=== PATIENT | female | born 1990 | race Caucasian/White ===

== ENCOUNTER 2017-07-15 19:11 | Emergency (ER) | payer MEDICAID, SELFPAY ==
[2017-07-15 19:27] VITALS: BP 126/79; PULSE 94; RESP 18; TEMP 37; O2SAT 98; BMI 33.2
--- NOTE | 2017-07-15 20:17 | HMH.EDGENADL ---
ED Disposition Clinical Impression: Ulnar tunnel syndrome of right wrist Disposition: Home, Self-Care Condition on Discharge: Good Instructions: Cubital Tunnel Syndrome Additional Instructions: wear splint and use meds and see pcp or ortho for follow up Prescriptions: predniSONE [Prednisone 20mg Tab] 20 mg PO BID #14 tab Referrals: Candice Landry [Primary Care Provider] - - Critical Care Critical Care Time: No Attestation: On 07/15/17, the high probability of a clinically significant, sudden or life threatening deterioration of the following system(s) required my full and direct attention, intervention and personal management. The time I documented below is in addition to time spent performing reported procedures but includes the following listed in this critical care notation. Medical Decision Making - Medical Records Medical records reviewed: Yes: I reviewed the patient's medical records. Vital Signs: 07/15/17 19:27 Temperature 98.6 F Temperature Source Oral Pulse Rate [Right Brachial] 94 H Respiratory Rate 18 Blood Pressure [Right Arm] 126/79 Blood Pressure Mean [Right Arm] 94 Blood Pressure Source [Right Arm] Automatic Cuff Blood Pressure Position [Right Arm] Sitting 02 Sat by Pulse Oximetry 98 Oxygen Delivery Method Room Air - Farooq Inquiry Pt receiving controlled substance: No General Adult HPI - General Chief complaint: PAIN Stated complaint: Right hand swelling, pain in right elbow Time Seen by Provider: 07/15/17 20:17 Mode of Arrival: Ambulatory Source of Information: Patient, Relative Limitations: No Limitations Description of Symptoms (Recalled from ER Triage Doc. 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 Onset (ago): week(s) Location: right, upper extremity Severity: moderate - Related Data Previous Rx's Medication Instructions Recorded predniSONE [Prednisone 20mg 20 mg PO BID #14 tab 07/15/17 Tab] Allergies Allergy/AdvReac Type Severity Reaction Status Date / Time No Known Allergies Allergy Unverified 07/01/17 15:20 [facility] History I have reviewed the patient's past medical history: Yes Medical History: Denies:: Cancer, Diabetes Mellitus Type 1, Diabetes Mellitus Type 2, MRSA Laterality Cases: Bilateral: Myringotomy (Ear Tubes), Tonsillectomy Amputation: No Fractures: Yes (left wrist, right thumb) - *Social History Educational Level: Completed GED/General Educational Development Smoking Status: Never smoker Alcohol Intake: never - Psychiatric History Expresses thoughts of harming self/others: None Suicide Plan Description: No Plan ROS Obtained: Yes All systems reviewed & no additional complaints except as noted - Constitutional Denies fever(s) - Musculoskeletal Reports radiating pain into limb, Denies joint pain, Denies joint swelling Physical Exam - General General appearance: alert, in no apparent distress - Head Head exam: atraumatic - Eye Eye exam: Present: normal appearance - ENT ENT exam: Present: mucous membranes moist - Neck Neck exam: Present: normal inspection - Respiratory Respiratory exam: Absent: respiratory distress - Cardiovascular Cardiovascular exam: Present: regular rate - Extremities Exam Extremities exam: Present: normal inspection, full ROM, normal capillary refill, other (neg phalens and tinnels and neurovascular ok) - Neurological Exam Neurological exam: Present: alert, oriented X3, CN II-XII intact - Psychiatric Psychiatric exam: Present: normal affect - Skin Skin exam: Present: warm, dry
--- NOTE | 2017-07-15 20:20 | ED_ITS ---
ED Disposition Clinical Impression: Ulnar tunnel syndrome of right wrist Disposition: Home, Self-Care Condition on Discharge: Good Instructions: Cubital Tunnel Syndrome Additional Instructions: wear splint and use meds and see pcp or ortho for follow up Prescriptions: predniSONE [Prednisone 20mg Tab] 20 mg PO BID #14 tab Referrals: Candice Landry [Primary Care Provider] - - Critical Care Critical Care Time: No Attestation: On 07/15/17, the high probability of a clinically significant, sudden or life threatening deterioration of the following system(s) required my full and direct attention, intervention and personal management. The time I documented below is in addition to time spent performing reported procedures but includes the following listed in this critical care notation. Medical Decision Making - Medical Records Medical records reviewed: Yes: I reviewed the patient's medical records. Vital Signs: 07/15/17 19:27 Temperature 98.6 F Temperature Source Oral Pulse Rate [Right Brachial] 94 H Respiratory Rate 18 Blood Pressure [Right Arm] 126/79 Blood Pressure Mean [Right Arm] 94 Blood Pressure Source [Right Arm] Automatic Cuff Blood Pressure Position [Right Arm] Sitting 02 Sat by Pulse Oximetry 98 Oxygen Delivery Method Room Air - Farooq Inquiry Pt receiving controlled substance: No General Adult HPI - General Chief complaint: PAIN Stated complaint: Right hand swelling, pain in right elbow Time Seen by Provider: 07/15/17 20:17 Mode of Arrival: Ambulatory Source of Information: Patient, Relative Limitations: No Limitations Description of Symptoms (Recalled from ER Triage Doc. 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 Onset (ago): week(s) Location: right, upper extremity Severity: moderate - Related Data Previous Rx's Medication Instructions Recorded predniSONE [Prednisone 20mg 20 mg PO BID #14 tab 07/15/17 Tab] Allergies Allergy/AdvReac Type Severity Reaction Status Date / Time No Known Allergies Allergy Unverified 07/01/17 15:20 [facility] History I have reviewed the patient's past medical history: Yes Medical History: Denies:: Cancer, Diabetes Mellitus Type 1, Diabetes Mellitus Type 2, MRSA Laterality Cases: Bilateral: Myringotomy (Ear Tubes), Tonsillectomy Amputation: No Fractures: Yes (left wrist, right thumb) - *Social History Educational Level: Completed GED/General Educational Development Smoking Status: Never smoker Alcohol Intake: never - Psychiatric History Expresses thoughts of harming self/others: None Suicide Plan Description: No Plan ROS Obtained: Yes All systems reviewed & no additional complaints except as noted - Constitutional Denies fever(s) - Musculoskeletal Reports radiating pain into limb, Denies joint pain, Denies joint swelling Physical Exam - General General appearance: alert, in no apparent distress - Head Head exam: atraumatic - Eye Eye exam: Present: normal appearance - ENT ENT exam: Present: mucous membranes moist - Neck Neck exam: Present: normal inspection - Respiratory Respiratory exam: Absent: respiratory distress
[2017-07-15 20:43] VITALS: BP 108/64; PULSE 63; RESP 18; TEMP 36.6
--- NOTE | 2017-07-15 20:46 | PC.NURSE ---
SPLINT APPLIED TO RIGHT WRIST ORDERED PER DR COFFMAN
== END 2017-07-15 20:47 | disposition home or self-care (01) ==
LOC: UTC 19:20 → ER 19:23
PROVIDERS: Emergency Provider Emergency Medicine; Family Provider Family Medicine; PCP Physician Assistant
DX: G56.21 Lesion of ulnar nerve, right upper limb (principal)
CPT/HCPCS: 29125; 99282; 99283

== ENCOUNTER 2018-10-19 13:00 | Outpatient (RCR) | payer MEDICAID, SELFPAY | END 2018-11-09 14:43 | disposition home or self-care (01) | LOC: OT 13:00 | PROVIDERS: Visit Provider Physician Assistant | DX: M25.521 Pain in right elbow (principal); M25.531 Pain in right wrist | CPT/HCPCS: 97110; 97164; 97165; 97763 ==

== ENCOUNTER 2021-03-11 09:07 | Emergency (ER) | payer MEDICAID, SELFPAY ==
[2021-03-11 09:27] VITALS: BP 136/76; PULSE 104; RESP 16; TEMP 36.9; O2SAT 100; BMI 33.2
--- NOTE | 2021-03-11 09:31 | HMH.EDUTC ---
[facility] – [place] Disposition Clinical Impression: URI (upper respiratory infection) Qualifiers: URI type: unspecified viral URI Qualified Code(s): J06.9 - Acute upper respiratory infection, unspecified Disposition: Home, Self-Care Condition on Discharge: Good Instructions: DI for Viral Upper Respiratory Infection -- Adult Additional Instructions: Rest, fluids, Tylenol/Motrin as needed. You have been tested for COVID19. Please isolate yourself as if you are positive until test results received. Prescriptions: Albuterol Sulfate [Albuterol Sulfate Hfa] 2 puffs IH Q6HP PRN 30 Days #1 each PRN Reason: Shortness Of Breath Transmission Status: [facility] predniSONE [Prednisone 20mg Tab] 20 mg PO BID 5 Days #10 tab Transmission Status: Pending to [facility] Referrals: Alma Jones APRN [Primary Care Provider] - Forms: Work/School Release Time of Disposition: 09:50 Medical Decision Making - Farooq Inquiry Pt receiving controlled substance: No Vital Signs: 03/11/21 09:27 Temperature 98.5 F Temperature Source Oral Pulse Rate [Left] 104 H Respiratory Rate 16 Blood Pressure [Right Arm] 136/76 Blood Pressure Mean [Right Arm] 96 02 Sat by Pulse Oximetry 100 Orders (Tests/Meds): ORDERS Category Date Time Status Covid-19 Nasal PCR ([facility]) Routine Lab 03/11/21 09:33 Ordered [facility] [place] HPI - General Stated complaint: sore throat, weakness, cough, sob, headache Time Seen by Provider: 03/11/21 09:31 - History of Present Illness Provider Complaint: Sore throat, cough, headache, runny nose, non productive cough, body aches, nausea, diarrhea. No fever. No loss of taste or smell. No known exposure to COVID19 but works at [employer]. Has felt poorly X 2 days. Onset (ago): day(s) (2) Location: head, chest Consistency: constant Relieving factors: none Exacerbating factors: none Associated symptoms: cough, fever/chills, headaches, malaise, nausea/vomiting, shortness of breath Treatments prior to arrival: NSAID - Related Data Home Medications Medication Instructions Recorded Confirmed Dextroamphetamine/Amphetamine 30 mg PO BID 06/14/19 06/14/19 [Adderall 30 mg Tablet] Previous Rx's Medication Instructions Recorded Amoxicillin [Amoxicillin 500mg Tab] 500 mg PO TID 10 Days #30 tab 06/14/19 Brompheniramine/Pseudoephed/Dm 5 ml PO Q6HP PRN #240 syrup 06/14/19 [Bromfed Dm Cough Syrup] predniSONE [Deltasone 10mg tablet] 10 mg PO BID 3 Days #6 tab 06/14/19 Albuterol Sulfate [Albuterol 2 puffs IH Q6HP PRN 30 Days #1 each 03/11/21 Sulfate Hfa] predniSONE [Prednisone 20mg 20 mg PO BID 5 Days #10 tab 03/11/21 Tab] Allergies Allergy/AdvReac Type Severity Reaction Status Date / Time No Known Allergies Allergy Verified 12/05/17 17:47 [facility] History - Hepatitis A Screen Attestation statement:: This patient has been screened for Hepatitis A risk factors. I have reviewed the patient's past medical history: Yes Medical History: Denies:: Cancer, Diabetes Mellitus Type 1, Diabetes Mellitus Type 2, MRSA Laterality Cases: Bilateral: Myringotomy (Ear Tubes), Tonsillectomy Amputation: No Fractures: Yes (left wrist, right thumb) - Social History Smoking Status: Never smoker Alcohol Intake: never Occupational Status: other ROS Obtained: Yes All systems reviewed & no additional complaints - Constitutional Constitutional: Reports body ache, Reports chills, Reports fatigue, Denies fever(s), Reports malaise - ENT Ears, Nose, Mouth, and Throat: Reports headache(s), Reports nasal congestion - Respiratory Respiratory: Reports cough - Gastrointestinal Gastrointestingal: Reports: nausea Physical Exam - General General appearance: alert, in no apparent distress - Eye Eye exam: Present: PERRL - ENT ENT exam: Present: TM's normal bilaterally - Expanded ENT Exam Throat exam: Present: other (PND) - Respiratory Respiratory exam: Present: normal lung onofre
[2021-03-11 10:08] VITALS: BP 136/76; PULSE 104; RESP 18; TEMP 36.9
== END 2021-03-11 10:18 | disposition home or self-care (01) ==
PROVIDERS: Emergency Provider Physician Assistant; PCP Nurse Practitioner Family
DX: J06.9 Acute upper respiratory infection, unspecified (principal); Z20.822 Contact with and (suspected) exposure to COVID-19
CPT/HCPCS: 99202; G0463; U0003

== ENCOUNTER 2021-04-20 09:26 | Emergency (ER) | payer MEDICAID, SELFPAY ==
[2021-04-20 09:30] VITALS: BP 127/85; PULSE 94; RESP 20; TEMP 36.9; O2SAT 100; BMI 33.5
--- NOTE | 2021-04-20 10:02 | HMH.EDUTC ---
[facility] – [place] Disposition Clinical Impression: Dysuria Disposition: Home, Self-Care Condition on Discharge: Good Instructions: Interstitial Cystitis, Urine Culture, DI for Urinary Tract Infection (UTI), DI for Interstitial Cystitis Additional Instructions: Drink plenty of fluids. Take tylenol or ibuprofen for pain or fever. Take the medications as directed. Follow up with your regular doctor. GO TO THE ER FOR ANY WORSENING SYMPTOMS Quarantine until you know the results of your covid-19 test. If it is positive, the health department should call you and give you further instructions about your length of Quarantine and other things. Notify your school or workplace of your results and follow their instructions regarding return to work/school. The pyridium will make your urine turn orange, this is an expected side effect. It will stain your clothes if it comes into contact with them. I put in a referral to a urologist because you only have 1 kidney and your symptoms sound more like interstitial cystitis than they do an actual infection. I recommend you call Dr. Ashby's office and get a follow up appointment there for him to go back over everything and to see if there are other ways to help you when your symptoms return after this episode. Prescriptions: Sulfamethoxazole/Trimethoprim [Bactrim DS tablet] 1 each PO BID 5 Days #10 tab Transmission Status: Received by [facility] Fluconazole [Diflucan 150mg tab] 150 mg PO ONCE #1 tab Transmission Status: Received by [facility] Phenazopyridine HCl [Pyridium 200mg Tablet] 200 pow PO TID #6 tab Transmission Status: Received by [facility] Referrals: Charley El [Primary Care Provider] - Bart Ashby MD [Staff Physician] - Forms: Work/School Release Time of Disposition: 10:20 Medical Decision Making - Medical Records Medical records reviewed: No: I reviewed the patient's medical records. - Farooq Inquiry Pt receiving controlled substance: No Vital Signs: 04/20/21 09:30 04/20/21 10:22 Temperature 98.4 F 98.4 F Temperature Source Oral Pulse Rate 94 H Pulse Rate [Right Brachial] 94 H Respiratory Rate 20 20 Blood Pressure 127/85 Blood Pressure [Right Arm] 127/85 Blood Pressure Mean [Right Arm] 99 Blood Pressure Source [Right Arm] Automatic Cuff Blood Pressure Position [Right Arm] Sitting 02 Sat by Pulse Oximetry 100 Oxygen Delivery Method Room Air - Lab Data Lab results reviewed: Yes: I reviewed the patient's lab results. Lab Results 04/20/21 10:05: Urine Color Dark yellow, Urine Appearance Clear, Urine pH 6.0, Ur Specific [place] 1.025, Urine Protein Negative, Urine Glucose (UA) Negative, Urine Ketones Negative, Urine Blood Negative, Urine Nitrate Negative, Urine Bilirubin Negative, Urine Urobilinogen 0.2, Ur Leukocyte Esterase Negative Orders (Tests/Meds): ORDERS Category Date Time Status Covid-19 Nasal PCR ([facility]) Routine Lab 04/20/21 09:56 Received Urine Culture Stat Micro 04/20/21 09:47 Received [facility] UTC HPI - General Stated complaint: possible uti, cough, weakness, runny nose headache Time Seen by Provider: 04/20/21 10:02 - History of Present Illness Provider Complaint: She c/o 2 days of dysuria and pressure in her bladder . She thinks that she has uti. She states that she gets symptoms like this every few months and she gets treated like she has a UTI with antibiotics and it gets better. She denies any fever or chills. - Related Data Home Medications Medication Instructions Recorded Confirmed Dextroamphetamine/Amphetamine 30 mg PO BID 06/14/19 06/14/19 [Adderall 30 mg Tablet] Previous Rx's Medication Instructions Recorded Amoxicillin [Amoxicillin 500mg Tab] 500 mg PO TID 10 Days #30 tab 06/14/19 Brompheniramine/Pseudoephed/Dm 5 ml PO Q6HP PRN #240 syrup 06/14/19 [Bromfed Dm Cough Syrup] predniSONE [Deltasone 10mg tablet] 10 mg PO BID 3 Days #6 tab 06/14/19 [facility]
[2021-04-20 10:22] VITALS: BP 127/85; PULSE 94; RESP 20; TEMP 36.9; O2SAT 100
[2021-04-20 11:41] LABS: Apearance,Urine Clear (Clear); Color,Urine Dark Yellow (Yellow); Specific Gravity, Urine 1.025 (1.005-1.030)
[2021-04-20 11:42] LABS: Bilirubin,Urine Negative (Negative); Blood, Urine Negative (Negative); Glucose,Urine (UA) Negative (Negative); Ketones,Urine Negative (Negative); Protein,Urine Negative (Negative); UTC Leukocyte Esterase,Urine Negative (Negative); UTC Nitrate,Urine Negative (Negative); Urobilinogen,Urine 0.2 EU/dl (0.2)
== END 2021-04-20 10:26 | disposition home or self-care (01) ==
PROVIDERS: Emergency Provider Nurse Practitioner Family; PCP Nurse Practitioner Family
DX: R30.0 Dysuria (principal); R05.9 Cough, unspecified; R53.1 Weakness; R09.89 Other specified symptoms and signs involving the circulatory and respiratory systems; R51.9 Headache, unspecified
CPT/HCPCS: 81003; 87086; 99203; C9803; G0463; U0003; U0005

== ENCOUNTER → 2022-05-15 10:40 | Outpatient (CLI) | payer MEDICAID, SELFPAY | PROVIDERS: PCP Nurse Practitioner Family; Visit Provider Nurse Practitioner Family | DX: E75.6 Lipid storage disorder, unspecified (principal) ==

== ENCOUNTER → 2022-05-16 11:59 | Outpatient (CLI) | payer MEDICAID, SELFPAY ==
[2022-05-16 09:09] LABS: Chol/HDL Ratio 2.6 (1-3.5); Cholesterol 124 mg/dl (140-200); HDL Cholesterol 47 mg/dl (40-60); Triglycerides 52 mg/dl (30-150); VLDL Cholesterol 10 mg/dL (0-40)
[2022-05-16 09:20] LABS: Direct LDL Cholesterol 68.37 mg/dL (100-129)
[2022-05-16 09:25] LABS: Hemoglobin A1C 4.7 % (4.0-6.0)
== END ==
PROVIDERS: PCP Nurse Practitioner Family; Visit Provider Nurse Practitioner Family
DX: E75.6 Lipid storage disorder, unspecified (principal); Z51.81 Encounter for therapeutic drug level monitoring
CPT/HCPCS: 80061; 83036

== ENCOUNTER → 2022-06-11 12:52 | Outpatient (CLI) | payer MEDICAID, SELFPAY ==
--- NOTE | 2022-06-11 13:00 | XR_ITS ---
FINAL REPORT CLINICAL HISTORY: wrist pain FINDINGS: Right wrist Three views were obtained. There is no acute fracture or dislocation. The joint spaces appear normal. No soft tissue abnormality is identified. IMPRESSION: No acute process. Reviewed, Interpreted and Dictated by Luis Durán MD Transcribed by Pia Yanes Authenticated and [facility]
--- NOTE | 2022-06-11 13:00 | XR_ITS ---
FINAL REPORT CLINICAL HISTORY: wrist pain FINDINGS: Left wrist Three views were obtained. There is no acute fracture or dislocation. The joint spaces appear normal. No soft tissue abnormality is identified. IMPRESSION: No acute process. Reviewed, Interpreted and Dictated by Luis Durán MD Transcribed by Pia Yanes Authenticated and [facility]
== END ==
PROVIDERS: PCP Family Medicine; Visit Provider Orthopaedic Surgery
DX: M25.531 Pain in right wrist (principal); M25.532 Pain in left wrist
CPT/HCPCS: 73110

== ENCOUNTER → 2023-06-02 16:00 | Outpatient (CLI) | payer MEDICAID, SELFPAY ==
[2023-06-04 22:23] LABS: Neisseria gonorrhoeae, NAA Negative (Negative)
== END ==
PROVIDERS: PCP Nurse Practitioner Family; Visit Provider Nurse Practitioner Family
DX: Z11.3 Encounter for screening for infections with a predominantly sexual mode of transmission (principal)
CPT/HCPCS: 87491; 87591

== ENCOUNTER 2023-08-07 21:49 | Emergency (ER) | payer MEDICAID, SELFPAY ==
[2023-08-07 21:51] VITALS: BP 133/87; PULSE 90; RESP 17; TEMP 37; O2SAT 99; BMI 32.2
--- NOTE | 2023-08-07 22:12 | XR_ITS ---
PROCEDURE INFORMATION: Exam: XR Right Hand Exam date and time: 08/07/2023 10:05 PM Age: 32 years old Clinical indication: Pain; Hand; Right; Additional info: Index finger injury, jammed on wall TECHNIQUE: Imaging protocol: Radiologic exam of the right hand. Views: 3 or more views. COMPARISON: No relevant prior studies available. FINDINGS: Bones/joints: Normal. Soft tissues: Normal. IMPRESSION: No acute findings.
--- NOTE | 2023-08-07 22:46 | ED_ITS ---
Discharge Plan Disposition Patient Disposition: Home, Self-Care Condition: Good Prescriptions Prescriptions: No Action buspirone 15 mg tablet 15 mg PO BID lamotrigine 200 mg tablet 400 mg PO BID dextroamphetamine-amphetamine 20 mg tablet 20 mg PO TID Patient Comments: TAKE 1 TABLET BY MOUTH THREE TIMES A DAY Referrals Follow up/Referrals: Lashanda Smith APRN [Primary Care Provider] - See instructions Gerardo Edward DO [Staff Physician] - See instructions Activity Restrictions/Add. Instructions Additional Instructions/Restrictions: You were evaluated in the emergency department today. Please take Tylenol and ibuprofen as needed for pain. Follow-up with ortho for reassessment. Use the splint as needed for support. Clinical Impressions Clinical Impression: Strain of finger of right hand Instructions Patient Instructions: DI for Finger Sprain Discharge ED Provider: Toyin Flood General Adult HPI General Chief complaint: Extremity Injury, Upper Stated complaint: AO01/25@2030 RT index finger inj Time Seen by Provider: 08/07/23 22:10 Mode of Arrival: Ambulatory Source of Information: Patient Limitations: No Limitations Description of Symptoms (Recalled from ER Triage Doc. by RN): Patient accidentally hit wall with right index finger causing it to bend backward and she states that it made a snap noise. Sharp pain 7/10. Redness and swelling noted. Injury occurred at approximately 1930, patient took motrin at 1999. History of Present Illness HPI narrative: This patient is a 32-year-old [id number] female who denies significant past medical history presenting to the emergency department for evaluation with concern for right index finger injury. She reports that she went to speak her child when she hit her finger on the wall, causing it to bend backwards. She felt a snap noise. She complains of 7 out of 10 pain and swelling. This happened around 7:30 PM. She took Motrin at 8pm without good improvement. She denies any other concerns. No numbness, tingling, or other issues. She was well prior to this. Related Data Home Medications Medication Instructions Recorded Confirmed dextroamphetamine-amphetamine 20 20 mg PO TID 05/15/22 06/02/23 mg tablet buspirone 15 mg tablet 15 mg PO BID anxiety 06/02/23 06/02/23 lamotrigine 200 mg tablet 400 mg PO BID mood 06/02/23 06/02/23 Allergies Allergy/AdvReac Type Severity Reaction Status Date / Time Penicillins Allergy Verified 06/02/23 13:34 [facility] Disclaimer: The information contained in this section may have been updated after the linda ent was seen, as this information can be updated by other users. Medical History ADHD Anxiety Kidney stones Surgical History History of dental surgery History of dilatation and curettage History of tonsillectomy Family History Grandmother Cancer Mother Coronary artery disease Social History Smoking Status: Never smoker second hand exposure: Yes alcohol intake: never current occupational status: other Travel in the last 8 weeks: None ROS Obtained: Yes All systems reviewed & no additional complaints except as documented Physical Exam General General appearance: alert and in no apparent distress Head Head exam: atraumatic and normocephalic Eye Eye exam: Present normal appearance, PERRL and EOMI ENT ENT exam: Present normal exam, normal oropharynx, mucous membranes moist and normal external ear exam Neck Neck exam: Present normal inspection, full ROM and trachea midline; Absent tenderness Chest Chest inspection: Present normal inspection and symmetric chest wall rise; Absent tenderness Respiratory Respiratory exam: Present normal lung sounds bilaterally; Absent respiratory distress, wheezes, stridor or accessory muscle use Cardiovascular Cardiovascular exam: Present regular rate and normal rhythm Abdominal Exam Abdominal exam: Present soft; Absent distention, tenderness or guarding Extremities Exam Extremities exam: Present full ROM, tenderness, normal capillary refill and joint swelling; Absent edema Expanded Upper Extremity Exam Right: Hand L/R back image: 2 1. Swelling with numbness to palpation. Intact flexion of the PIP with limited flexion of the DIP secondary to pain. Sensation and capillary fill intact distally. Back Exam Back exam: Present normal inspection and full ROM; Absent tenderness Neurological Exam Neurological exam: Present alert, oriented X3, CN II-XII intact and normal gait; Absent motor sensory deficit Psychiatric Psychiatric exam: Present normal affect and normal mood Skin Skin exam: Present warm and dry Medical Decision Making Medical Records Medical records reviewed: Yes I reviewed the patient's medical records. Farooq Inquiry Pt receiving controlled substance: No Vital Signs: 08/07/23 21:51 Temperature 98.6 F Temperature Source Oral Pulse Rate [Left Radial] 90 Respiratory Rate 17 Blood Pressure [Right Arm] 133/87 Blood Pressure Mean [Right Arm] 102 Blood Pressure Source [Right Arm] Automatic Cuff Blood Pressure Position [Right Arm] Sitting 02 Sat by Pulse Oximetry 99 Oxygen Delivery Method Room Air Lab Data Lab results reviewed: Yes I reviewed the patient's lab results. Orders (Tests/Meds): ORDERS Category Date Time Status XR hand RT min 3V Stat Exams 08/07/23 22:12 Completed Medical Decision Narrative: In summary, this patient is a 32-year-old female presenting to the Emergency Department for evaluation of right index finger injury. Differential diagnoses considered include but are not limited to, strain/sprain, ligamentous injury, neurovascular injury. Ruling out the most morbid conditions drove assessment. On exam, patient is neurovascularly intact with intact range of motion. She has limited flexion at the DIP secondary to pain. Workup included of the right hand. I independently interpreted x-ray prior to the radiologist read and noted no acute fracture. Please see their read for final interpretation. Given the patient is neurovascularly intact with intact range of motion, I feel that she is appropriate for discharge with follow-up outpatient with orthopedics/PCP for further evaluation and management of her injury. She was given finger splint and instructions for supportive management. She was dischar ged with strict return precautions. Critical Care Critical Care Time Critical Care Time: No
[2023-08-07 22:50] VITALS: BP 125/70; PULSE 72; RESP 19; TEMP 36.8; O2SAT 98
== END 2023-08-07 22:53 | disposition home or self-care (01) ==
PROVIDERS: Emergency Provider Emergency Medicine; PCP Nurse Practitioner Family
DX: S66.510A Strain of intrinsic muscle, fascia and tendon of right index finger at wrist and hand level, initial encounter (principal); W22.8XXA Striking against or struck by other objects, initial encounter
CPT/HCPCS: 73130; 99283